=== PATIENT | male | born 1995 | race African-American/Black ===

== ENCOUNTER 2020-02-29 16:51 | Emergency (ER) | payer MEDICAID ==
[~2020-02-29] VITALS: Ht 180.3 cm; Wt 96.2 kg
[2020-02-29 16:56] VITALS: BP 128/100
[2020-02-29] MEDS ORDERED: ONDANSETRON 4 MG ODT PO ONE (17:15)
[2020-02-29] MEDS ORDERED: ACETAMINOPHEN 325 MG TAB PO ONE (17:15)
[2020-02-29] MEDS ORDERED: ALUMINUM HYD/MAG/SIMETHICONE 30 ML UDC PO ONE (17:15)
[2020-02-29 17:44] LABS: BASOPHILS % (AUTO) 0.9 % (0.0-2.0); EOSINOPHILS # (AUTO) 0.1 K/uL (0-0.4); EOSINOPHILS % (AUTO) 2.3 % (0.0-4.0); HEMOGLOBIN 14.1 g/dL (12.0-18.0); LYMPHOCYTES # (AUTO) 2.6 K/uL (2.0-11.5); LYMPHOCYTES % (AUTO) 52.9 % (20.5-51.1); MEAN CORPUSCULAR HEMOGLOBIN 29 pg (27-31); MEAN CORPUSCULAR HGB CONC 34 g/dL (33-37); MEAN CORPUSCULAR VOLUME 86.5 fL (80-94); MONOCYTES # (AUTO) 0.4 K/uL (0.8-1.0); MONOCYTES % (AUTO) 8.4 % (1.7-9.3); NEUTROPHILS # (AUTO) 1.7 K/uL (1.8-7.7); NEUTROPHILS % (AUTO) 35.5 % (42.2-75.2); PLATELET COUNT (AUTO) 258 K/uL (140-450); RED BLOOD CELL COUNT(AUTO) 4.86 MIL/uL (4.20-6.10); RED CELL DISTRIBUTION WIDTH 13.9 % (11.6-13.7); WHITE BLOOD COUNT (AUTO) 4.9 K/uL (4.8-10.8)
[2020-02-29 17:58] LABS: ALBUMIN 3.9 g/dL (3.4-5.0); ANION GAP 12.3 (8-16); CARBON DIOXIDE 28.3 mmol/L (21-32); CREATININE 1.5 mg/dL (0.6-1.3); POTASSIUM 3.6 mmol/L (3.5-5.1); TOTAL BILIRUBIN 0.5 mg/dL (0.0-1.0)
[2020-02-29 19:14] VITALS: BP 126/84
== END 2020-02-29 19:15 | disposition home or self-care (01) ==
LOC: MED 16:51
DX: K29.70 Gastritis, unspecified, without bleeding (principal); F17.290 Nicotine dependence, other tobacco product, uncomplicated; Z88.6 Allergy status to analgesic agent
CPT/HCPCS: 36415; 76705; 80053; 82150; 83690; 84484; 85025; 93005; 99285; Q0092; Q0162

== ENCOUNTER 2020-03-13 18:39 | Emergency (ER) | payer MEDICAID ==
[~2020-03-13] VITALS: Ht 177.8 cm; Wt 94.3 kg
[2020-03-13 19:13] VITALS: BP 117/64
--- NOTE | 2020-03-13 19:39 | NUR ---
COLLECTED URINE AND GAVE TO [facility].
--- NOTE | 2020-03-13 19:54 | NUR ---
25m WAS HERE 2 WEEKS AGO AND WAS DIAGNOSED WITH GASTRITIS BUT PT C/O RUQ AND ENTIRE RT QUADS PAIN X 1 MONTH AND IS GETTING WORSE. DESCRIBES PAIN STABBING AND NUMBNESS. 04/26. TOOK TYLENOL YESTERDAY. DENIES ANY N,V,D,DYSURIA, OR BLOOD IN URINE. REPORTS HAVING ERECTILE DYSFUNCTION AND ITCHING THROUGHOUT THE WHOLE BODY. ALLERGIES: IBUPROFEN (EYES PUFF AND THROAT SWELLING) PMH: UTI.
[2020-03-13 20:16] LABS: APPEARANCE,URINE CLEAR (CLEAR); BILIRUBIN,URINE NEGATIVE (NEGATIVE); BLOOD, URINE NEGATIVE (NEGATIVE); COLOR,URINE YELLOW (YELLOW); LEUKOCYTE ESTERASE ,URINE NEGATIVE (NEGATIVE); NITRITE, URINE NEGATIVE (NEGATIVE); PH,URINE 5.5 (5.0-9.0); UGLUCOSE NEGATIVE (NEGATIVE)
--- NOTE | 2020-03-13 20:16 | NUR ---
Dr. Asher examining patient.
--- NOTE | 2020-03-13 20:29 | NUR ---
Geoffrey steven in [facility] - 03/13/20 at 2030 by ASHLYN PT D/C BY DR POSADAS -- ALL D/C INFO EXPLAINED BY DR POSADAS
--- NOTE | 2020-03-13 20:29 | NUR ---
Note undone in EDM - 03/13/20 at 2030 by ASHLYN Patient discharged with v/s stable. Written and verbal after care instructions given and explained. Patient alert, oriented and verbalized understanding of instructions. Ambulatory with steady gait. All questions addressed prior to discharge. ID band removed. Patient advised to follow up with PMD. Rx of PREDNSONE, ARTIFICAL TEARS given. Patient educated on indication of medication including possible reaction and side effects. Opportunity to ask questions provided and answered.
--- NOTE | 2020-03-13 20:38 | NUR ---
PT TO CT/XRAY VIA WHEELCHAIR
--- NOTE | 2020-03-13 20:42 | NUR ---
TOOK BLOOD TO LAB.
[2020-03-13 20:47] LABS: BASOPHILS % (AUTO) 0.4 % (0.0-2.0); EOSINOPHILS # (AUTO) 0.1 K/uL (0-0.4); EOSINOPHILS % (AUTO) 1.2 % (0.0-4.0); HEMATOCRIT 42.2 % (36-52); HEMOGLOBIN 13.8 g/dL (12.0-18.0); LYMPHOCYTES # (AUTO) 2.4 K/uL (2.0-11.5); LYMPHOCYTES % (AUTO) 49.9 % (20.5-51.1); MEAN CORPUSCULAR HEMOGLOBIN 28 pg (27-31); MEAN CORPUSCULAR HGB CONC 33 g/dL (33-37); MONOCYTES # (AUTO) 0.4 K/uL (0.8-1.0); MONOCYTES % (AUTO) 8.6 % (1.7-9.3); NEUTROPHILS # (AUTO) 1.9 K/uL (1.8-7.7); NEUTROPHILS % (AUTO) 39.9 % (42.2-75.2); PLATELET COUNT (AUTO) 261 K/uL (140-450); RED BLOOD CELL COUNT(AUTO) 4.85 MIL/uL (4.20-6.10); RED CELL DISTRIBUTION WIDTH 13.8 % (11.6-13.7); WHITE BLOOD COUNT (AUTO) 4.8 K/uL (4.8-10.8)
--- NOTE | 2020-03-13 20:48 | NUR ---
PT RETURNED BACK FROM CT/XR VIA W/C.
[2020-03-13 21:18] LABS: ANION GAP 13.4 (8-16); CARBON DIOXIDE 27.6 mmol/L (21-32); CREATININE 1.5 mg/dL (0.6-1.3)
[2020-03-13 21:23] LABS: ALBUMIN 4.1 g/dL (3.4-5.0); TOTAL BILIRUBIN 0.7 mg/dL (0.0-1.0)
[2020-03-13 21:32] LABS: CREATINE KINASE MB 3.4 ng/mL (0-3.6)
--- NOTE | 2020-03-13 21:35 | NUR ---
pt resting in bed. no further needs at this time. awake and alert. bed lowest and locked, rails up x 1, hob elevated
[2020-03-13 22:07] LABS: CHOL/HDL RATIO 4.2 (1-4.5)
[2020-03-13 22:27] VITALS: BP 132/86
--- NOTE | 2020-03-13 22:27 | NUR ---
Patient discharged with v/s stable BY DR. POSADAS. Written and verbal after care instructions given and explained. Patient verbalized understanding. Ambulatory with steady gait. All questions addressed prior to discharge. Advised to follow up with PMD.
== END 2020-03-13 22:27 | disposition home or self-care (01) ==
LOC: MED 18:39
DX: R07.89 Other chest pain (principal); Z88.6 Allergy status to analgesic agent
CPT/HCPCS: 36415; 71045; 71250; 74176; 80053; 80061; 81003; 82550; 82553; 83880; 84484; 85025; 85379; 93005; 99285; Q0092; 81002